=== PATIENT | female | born 1955 | race Caucasian/White ===

== ENCOUNTER → 2019-01-27 08:26 | Outpatient (CLI) | payer BC, SELFPAY ==
--- NOTE | 2019-01-27 | DI.MG.S_ITS ---
BILATERAL DIGITAL SCREENING MAMMOGRAM 3D/2D WITH CAD: 01/27/2019 CLINICAL: Routine screening. Comparison is made to exams dated: 02/26/2017 mammogram, 01/10/2016 mammogram, 06/18/2013 mammogram, 10/11/2008 mammogram, 05/06/2011 mammogram, and 06/11/2012 mammogram - [facility]. The tissue of both breasts is heterogeneously dense. This may lower the sensitivity of mammography. Current study was also evaluated with a Computer Aided Detection (CAD) system. No significant masses, calcifications, or other findings are seen in either breast. There has been no significant interval change. IMPRESSION: NEGATIVE There is no mammographic evidence of malignancy. A 1 year screening mammogram is recommended. This exam was interpreted at Station ID: [id number]. NOTE: For mammograms, a report in lay terms will be sent to the patient. Approximately 15% of breast malignancies will not be visualized mammographically. In the management of a palpable breast mass, a negative mammogram must not discourage biopsy of a clinically suspicious lesion. Electronically Signed By: Manuel longo/rodney:01/28/2019 11:56:23 copy to: JOSE DE JESUS WALTERS letter sent: Normal Exam ACR BI-RADS Category 1: Negative 3341F
== END ==
PROVIDERS: PCP Internal Medicine; Visit Provider Obstetrics & Gynecology
DX: Z12.31 Encounter for screening mammogram for malignant neoplasm of breast (principal)
CPT/HCPCS: 77063; 77067

== ENCOUNTER 2019-06-29 12:51 | Day surgery (SDC) | payer BC, SELFPAY ==
--- NOTE | 2019-06-29 | PATH_ITS ---
[facility] Accession Number: [id number] . 01 Material submitted: . cecum - BIOPSY CECUM . 01 Clinical history: . SCREENING COLONOSCOPY . 02 Diagnosis: Cecum, Biopsy: Tubular adenoma. MRV 06/30/2019 1118 Local . 02 Electronically signed: . Jose Lee MD, PhD, Pathologist NPI- [id number] . 01 Gross description: . BIOPSY CECUM: Received in formalin is 1 fragment(s) of rhodes, soft tissue measuring 0.2 x 0.2 x 0.2 cm submitted entirely in 1 cassette(s) /[facility] 06/29/2019 2046 Local . 02 Pathologist provided ICD-10: D12.0 . 02 CPT . 590746 Performed at: 01 [facility] [address] [id number] MD Erwin Husain MD Phone: [phone] Performed at: 02 [facility] [address] [place], [place] [id number] MD Kae Perry MD Phone: [phone]
[2019-06-29 13:18] VITALS: BP 126/83; PULSE 61; RESP 14; TEMP 36.4; O2SAT 100; BMI 24.0
[2019-06-29] MEDS: SODIUM CHLORIDE 0.9% 1,000 ML 200 ML IV (13:36)
--- NOTE | 2019-06-29 13:36 | P.HP_ITS ---
History of Present Illness History of Present Illness Date Patient Seen: 06/29/19 Time Patient Seen: 13:36 Chief complaint: [id number] SCREENING COLONOSCOPY Narrative: This is a 64-year-old woman with history of screening colonoscopy 10 years ago, which was reportedly normal. She denies any symptoms of hematochezia, melena, unexplained weight loss, or abdominal pain. She is otherwise quite healthy, and has no complaints. ROS: Thirteen system review is negative other than as mentioned below and in HPI. PE: GENERAL: Well groomed and cooperative. Appears stated age. Answers questions promptly and appropriately. Vital signs noted. HENT: Normocephalic, atraumatic. Hearing intact. Oral mucosa is pink and moist. EYES: Conjunctiva pink, sclera white, no periorbital swelling. CARDIOVASCULAR: Regular rate. No pedal edema. RESPIRATORY: Normal respiratory rate, breathing comfortably on room air. GASTROINTESTINAL: Abdomen soft and non-distended GENITALURINARY: No flank tenderness. MUSCULOSKELETAL: Equal tone and mass bilaterally. SKIN: Warm, dry, soft, appropriate color for ethnicity. No other lesions, rashes, or wounds. NEURO: Alert and Oriented X 3. No gross sensory deficits, or cognitive issues. PSYCH: Appropriate affect and mood. Patient History Surgical History History of third molar tooth extraction Status post dilation and curettage Family & Social History Social History: household members spouse Tobacco & Substance use: Smoking Status Former smoker Meds Home Medications and Allergies Home Medications Medication Instructions Recorded Confirmed Type estradiol 10 mcg vaginal tablet 10 mcg VAGINAL TWICE A WEEK #24 tab 02/25/19 06/29/19 Rx acyclovir 400 mg PO BID 06/29/19 06/29/19 History magnesium glycinate 400 mg PO DAILY 06/29/19 06/29/19 History rosuvastatin 30 mg PO DAILY 06/29/19 06/29/19 History Allergies Allergy/AdvReac Type Severity Reaction Status Date / Time No Known Drug Allergies Allergy Unverified 04/21/19 11:03 Exam Vital Signs (past 8 hours): - 06/29/19 13:18 Temperature 97.5 F L Pulse Rate 61 Respiratory Rate 14 Blood Pressure 126/83 Pulse Oximetry 100 Oxygen Delivery Method Room Air Assessment & Plan Assessment and plan (1) At average risk for colon cancer: Current visit: Yes Status: Acute Assessment & Plan narrative: This is a 64-year-old woman here for screening colonoscopy. Risks and benefits of colonoscopy and possible polypectomy were discussed including risk of bleeding, perforation, need for additional procedu res, need for surgical intervention. The patient desires to proceed with her colonoscopy procedure. Plan: Proceed with colonoscopy and possible polypectomy Time Spent With Patient Time with patient: 15-24 minutes
[2019-06-29] MEDS: fentaNYL 250 MCG/5 ML INJ IV (13:42)
[2019-06-29] MEDS: MIDAZOLAM 5 MG/5 ML VIAL IV (13:42)
--- NOTE | 2019-06-29 14:11 | PM.OP.ENDO ---
Operative Date/Time/Diagnoses Date of procedure: 06/29/19 Time of procedure: 14:11 Pre-op diagnosis: Average risk for colon cancer Post-op diagnosis: other (Flat polyp in the cecum) Procedure & Clinicians Study performed: Colonoscopy, cold forceps biopsy x1 Same procedure as scheduled: Yes Indications: This is a 64-year-old woman who had a normal colonoscopy 10 years ago. She is here for follow-up screening colonoscopy. Surgeon: Carole Gamez Procedure Notes SCOAP/Timeout: Performed Procedure in detail: The patient was brought to the room and placed in left lateral decubitus position with all bony prominences padded. A time-out was performed and then the patient was given procedural sedation starting with [4] mg of Versed and [100] mcg of fentanyl. Vitals were monitored throughout the procedure and remained stable. Once adequately sedated the procedure was begun. A rectal exam was performed revealing [no abnormalities]. The colonoscope was then introduced to the rectum and advanced to the cecum in the usual fashion. []The cecum was identified by the appendiceal orifice, the mucosal try fold, and the ileocecal valve. The scope was then retracted while rotating side to side and examining each mucosal fold. [A small flat tissue abnormality in the cecum was seen. It appeared to be lymphoid tissue or a possibly a flat polyp. It was biopsied with cold forceps.] At the conclusion procedure retroflexion was performed and [small grade 1-2 internal hemorrhoids without stigmata of bleeding were seen]. The scope was then withdrawn from the rectum the procedure was concluded. The patient tolerated the procedure well was transferred to the PACU in stable condition. Start time 1341 Cecum time: 1359 End time: 1411 Total sedation time 30 minutes. Withdrawal time 12 minutes. Scope withdrawal time: 12 Sedation minutes: 30 Findings: polyp Specimen(s): other (Flat polyp from cecum, cold forceps biopsy) Complications: none Impression: Small flat tissue abnormality in the cecum. Possibly a sessile polyp or lymphoid aggregate. Post-procedure Recommendations: Other recommendation (Follow-up recommendations depend on pathology) Follow up: as needed Disposition: PACU
[2019-06-29 14:20] VITALS: BP 105/73; PULSE 60; RESP 16; TEMP 36.1; O2SAT 100
[2019-06-29 14:40] VITALS: BP 113/78; PULSE 51; RESP 17; TEMP 36.1; O2SAT 100
== END 2019-06-29 14:43 | disposition home or self-care (01) ==
PROVIDERS: PCP Nurse Practitioner Family; Visit Provider Surgery
PROC: 0DJD8ZZ Inspection of Lower Intestinal Tract, Via Natural or Artificial Opening Endoscopic (ICD-10-PCS; CPT 45378; principal; 2019-06-29 14:00)
DX: Z12.11 Encounter for screening for malignant neoplasm of colon (principal); K64.0 First degree hemorrhoids; D12.0 Benign neoplasm of cecum
CPT/HCPCS: 45380; 99152; 99153; J2250; J3010

== ENCOUNTER → 2021-06-20 16:42 | Outpatient (CLI) | payer BC, SELFPAY ==
--- NOTE | 2021-06-20 | DI.MG.S_ITS ---
BILATERAL DIGITAL SCREENING MAMMOGRAM 3D/2D WITH CAD: 06/20/2021 CLINICAL: Routine screening. Comparison is made to exams dated: 01/27/2019 mammogram, 02/26/2017 mammogram, and 01/10/2016 mammogram - [facility]. There are scattered fibroglandular elements in both breasts. Current study was also evaluated with a Computer Aided Detection (CAD) system. There are grouped fine calcifications in the right breast at 7 o'clock posterior depth. No other significant masses, calcifications, or other findings are seen in either breast. IMPRESSION: INCOMPLETE: NEEDS ADDITIONAL IMAGING EVALUATION The grouped fine calcifications in the right breast are indeterminate. Mediolateral, spot magnification, and additional views are recommended. This exam was interpreted at Station ID: [id number]. NOTE: For mammograms, a report in lay terms will be sent to the patient. Approximately 15% of breast malignancies will not be visualized mammographically. In the management of a palpable breast mass, a negative mammogram must not discourage biopsy of a clinically suspicious lesion. Electronically Signed By: Erwin parmar/rodney:06/20/2021 17:24:11 copy to: JOSE DE JESUS WALTERS letter sent: Additional Imaging Needed ACR BI-RADS Category 0: Incomplete 3340F
== END ==
PROVIDERS: PCP Internal Medicine; Referring Provider Internal Medicine; Visit Provider Internal Medicine
DX: Z12.31 Encounter for screening mammogram for malignant neoplasm of breast (principal)
CPT/HCPCS: 77063; 77067

== ENCOUNTER → 2021-07-16 13:27 | Outpatient (CLI) | payer BC, SELFPAY ==
--- NOTE | 2021-07-16 13:29 | DI.MG.S_ITS ---
UNILATERAL RIGHT DIGITAL DIAGNOSTIC MAMMOGRAM 3D/2D WITH ADDITIONAL VIEWS: 07/16/2021 CLINICAL: Additional evaluation requested from prior study. Comparison is made to exams dated: 06/20/2021 mammogram, 01/27/2019 mammogram, and 02/26/2017 mammogram - [facility]. The tissue of right breast is heterogeneously dense. This may lower the sensitivity of mammography. The fine grouped calcifications in the lateral right breast possibly at 7 o'clock posterior depth are not seen on additional views. Findings on the screening exam likely reflected artifact. No other significant masses or calcifications are seen in the breast. IMPRESSION: BENIGN There is no mammographic evidence of malignancy. A 1 year screening mammogram is recommended. This exam was interpreted at Station ID: [id number]. NOTE: For mammograms, a report in lay terms will be sent to the patient. Approximately 15% of breast malignancies will not be visualized mammographically. In the management of a palpable breast mass, a negative mammogram must not discourage biopsy of a clinically suspicious lesion. Electronically Signed By: Erwin parmar/:07/16/2021 13:56:22 copy to: JOSE DE JESUS WALTERS letter sent: Normal Exam ACR BI-RADS Category 2: Benign Finding(s) 3342F
== END ==
PROVIDERS: PCP Internal Medicine; Referring Provider Internal Medicine; Visit Provider Internal Medicine
DX: R92.8 Other abnormal and inconclusive findings on diagnostic imaging of breast (principal); R92.1 Mammographic calcification found on diagnostic imaging of breast
CPT/HCPCS: 77065; G0279

== ENCOUNTER → 2023-03-03 | Outpatient (CLI) | payer MEDICARE, BC, SELFPAY ==
--- NOTE | 2023-03-03 | DI.MG.S_ITS ---
BILATERAL DIGITAL SCREENING MAMMOGRAM 3D/2D WITH CAD: 03/03/2023 CLINICAL: Routine screening. Comparison is made to exams dated: 07/16/2021 mammogram, 06/20/2021 mammogram, 01/27/2019 mammogram, and 02/26/2017 mammogram - [facility]. Both breasts are heterogeneously dense, which may obscure small masses (category c / 51-75% glandular tissue). Current study was also evaluated with a Computer Aided Detection (CAD) system. No significant masses, calcifications, or other findings are seen in either breast. There has been no significant interval change. IMPRESSION: NEGATIVE There is no mammographic evidence of malignancy. A 1 year screening mammogram is recommended. Based on the Tyrer Cuzick model (a risk assessment model) the patient's lifetime risk is 7.2% and her 10 year risk is 3.6%. According to the ACR, ACS, and NCCN guidelines, an annual breast MRI exam along with mammogram is recommended if the patient's lifetime risk is 20% or greater. This exam was interpreted at Station ID: [id number]. NOTE: For mammograms, a report in lay terms will be sent to the patient. Approximately 15% of breast malignancies will not be visualized mammographically. In the management of a palpable breast mass, a negative mammogram must not discourage biopsy of a clinically suspicious lesion. Electronically Signed By: Johnnie hernandez/rodney:03/03/2023 13:14:36 copy to: JOSE DE JESUS WALTERS letter sent: Normal Exam ACR BI-RADS Category 1: Negative 3341F
--- NOTE | 2023-03-03 | DI.RAD.S_ITS ---
Bone Density Report Name: OSMAN ARIZA Age: 68 Sex: Female Ethnicity: White Date of : 1955 Indication: postmenopausal; screening for osteoporosis; Referring Provider: MINOR TOSCANO Study: Bone densitometry was performed. Exam Date: March 03, 2023 Accession number: [id number] Bone Density: Region BMD T-score Z-score Classification AP Spine(L1, L2) 0.970 -0.1 1.6 Normal Femoral Neck (Left) 0.592 -2.3 -0.7 Osteopenia Total Hip (Left) 0.772 -1.4 -0.1 Osteopenia Femoral Neck (Right) 0.623 -2.0 -0.5 Osteopenia Total Hip (Right) 0.768 -1.4 -0.1 Osteopenia Total Hip Mean 0.770 -1.4 -0.1 Osteopenia World Health Organization criteria for BMD impression classify patients as: Normal (T-score at or above -1.0), Osteopenia (T-score between -1.0 and -2.5), or Osteoporosis (T-score at or below -2.5). 10-year Fracture Risk(1): Major Osteoporotic Fracture 12% Hip Fracture 2.2% Reported Risk Factors: [place] (), Neck BMD=0.592, BMI=25.0 (1) FRAX(R) Version 3.08. Fracture probability calculated for an untreated patient. Fracture probability may be lower if the patient has received treatment. Impression: The patient has low bone mass, based on the Left Femoral Neck T-score. The patient has an estimated ten-year risk of hip fracture of 2.2% and an estimated ten-year risk of major fracture of 12%, based on the WHO FRAX algorithm. Discussion: BONE DENSITY IS LOW AT ONE OR MORE SKELETAL SITES. This patient's lowest T-score is low at one or more skeletal sites. It meets the World Health Organization's (WHO) criteria for low bone mass (T-score between -1.0 and -2.5). The patient's 10-year risk of fracture as calculated by FRAX is less than the threshold where pharmacological therapy is recommended by the National Osteoporosis Foundation (NOF). However, all treatment decisions require clinical judgment and consideration of individual patient factors, including patient preferences, comorbidities, previous drug use, risk factors not captured in the FRAX model (e.g., frailty, falls, vitamin D deficiency, increased bone turnover, interval significant decline in bone density) and possible under or overestimation of fracture risk by FRAX. The patient should follow a healthful lifestyle (good nutrition with adequate calcium and vitamin D, and appropriate weight-bearing exercise). Follow-Up: Consider repeating this study in 2 to 3 years to reassess this patient's status, or sooner if there is some new clinical indication. Reported by: YASMIN ARVIZU M.D. on 03/03/2023 12:07:00 PM.
== END ==
LOC: MAMMO 11:22
PROVIDERS: PCP Internal Medicine; Referring Provider Internal Medicine; Visit Provider Internal Medicine
DX: Z12.31 Encounter for screening mammogram for malignant neoplasm of breast (principal); Z78.0 Asymptomatic menopausal state; Z13.820 Encounter for screening for osteoporosis; M85.852 Other specified disorders of bone density and structure, left thigh
CPT/HCPCS: 77063; 77067; 77080

== ENCOUNTER → 2024-03-17 10:17 | Outpatient (CLI) | payer MEDICARE, BC, SELFPAY ==
--- NOTE | 2024-03-17 | DI.MG.S_ITS ---
BILATERAL DIGITAL SCREENING MAMMOGRAM 3D/2D WITH CAD: 03/17/2024 CLINICAL: Routine screening. Comparison is made to exams dated: 03/03/2023 mammogram, 06/20/2021 mammogram, 01/27/2019 mammogram, and 02/26/2017 mammogram - [facility]. Both breasts are heterogeneously dense, which may obscure small masses (category c / 51-75% glandular tissue). Current study was also evaluated with a Computer Aided Detection (CAD) system. No significant masses, calcifications, or other findings are seen in either breast. There has been no significant interval change. IMPRESSION: NEGATIVE There is no mammographic evidence of malignancy. A 1 year screening mammogram is recommended. Based on the Tyrer Cuzick model (a risk assessment model) the patient's lifetime risk is 6.8% and her 10 year risk is 3.6%. According to the ACR, ACS, and NCCN guidelines, an annual breast MRI exam along with mammogram is recommended if the patient's lifetime risk is 20% or greater. This exam was interpreted at Station ID: [id number]. NOTE: For mammograms, a report in lay terms will be sent to the patient. Approximately 15% of breast malignancies will not be visualized mammographically. In the management of a palpable breast mass, a negative mammogram must not discourage biopsy of a clinically suspicious lesion. Electronically Signed By: Mateo ryder/rodney:03/17/2024 10:57:42 copy to: JOSE DE JESUS WALTERS letter sent: Normal Exam ACR BI-RADS Category 1: Negative 3341F
== END ==
PROVIDERS: PCP Internal Medicine; Referring Provider Internal Medicine; Visit Provider Internal Medicine
DX: Z12.31 Encounter for screening mammogram for malignant neoplasm of breast (principal); R92.333 Mammographic heterogeneous density, bilateral breasts
CPT/HCPCS: 77063; 77067

== ENCOUNTER → 2025-05-14 11:32 | Outpatient (CLI) | payer MEDICARE, BC, SELFPAY ==
--- NOTE | 2025-05-14 11:37 | DI.MG.S_ITS ---
MM screening mammo BI: 05/14/2025. BI-RADS: 1 CLINICAL: 70-year old female for bilateral screening mammogram. Tyrer-Cuzick lifetime risk of 6.0%. No personal or first-degree family history of breast cancer. PRIOR EXAMS 03/17/2024, 03/03/2023, 07/16/2021, 06/20/2021. MAMMOGRAPHY TECHNIQUE: 2D and 3D (tomosynthesis) digital mammographic views obtained, with additional images as needed for full coverage. Current study was also evaluated with a Computer Aided Detection (CAD) system. DENSITY C. The breasts are heterogeneously dense, which may obscure small masses. MAMMOGRAPHY FINDINGS Bilateral: No suspicious mass, asymmetry, microcalcification, or other abnormality seen. IMPRESSION: * No evidence of malignancy. RECOMMENDATIONS Bilateral * Annual screening mammography. OVERALL ASSESSMENT CATEGORY BI-RADS-1: Negative. The [employer] recommends annual screening mammography beginning at age 40 for women with average risk of breast cancer. ELECTRONICALLY SIGNED: Alvina Granados M.D. on 05/16/2025 at 08:48:49 AM PT Interpreting Station ID: [id number]
== END ==
PROVIDERS: PCP Family Medicine; Referring Provider Family Medicine; Visit Provider Family Medicine
DX: Z12.31 Encounter for screening mammogram for malignant neoplasm of breast (principal); R92.333 Mammographic heterogeneous density, bilateral breasts
CPT/HCPCS: 77063; 77067